=== PATIENT | female | born 1960 | race Caucasian/White ===

== ENCOUNTER 2017-02-04 22:14 | Emergency (ER) | payer MEDICAID | END 2017-02-04 22:40 | disposition left against medical advice (07) | LOC: E/R 22:14 | DX: Z53.21 Procedure and treatment not carried out due to patient leaving prior to being seen by health care provider (principal) ==

== ENCOUNTER 2017-07-25 14:37 | Emergency (ER) | payer MEDICAID ==
[2017-07-25 17:51] LABS: URINE BLOOD (Dip) POC Trace-lysed (NEGATIVE); URINE GLUCOSE (Dip) POC Negative (NEGATIVE); URINE KETONES (Dip) POC Negative (NEGATIVE); URINE LEUKOCYTE EST (Dip) POC 2+ (NEGATIVE); URINE NITRITE (Dip) POC Negative (NEGATIVE); URINE TOTAL PROTEIN POC Negative (NEGATIVE)
[2017-07-25 17:51] LABS: URINE PH (Dip) POC 6.5 (5.0-8.5)
[2017-07-25] MEDS: ACETAMINOPHEN 500 MG TAB PO (17:53)
[2017-07-25] MEDS: KETOROLAC 15 MG INJ IM ×2 (17:53→19:39)
== END 2017-07-25 19:46 | disposition home or self-care (01) ==
LOC: FTE 14:37
DX: M54.5 Low back pain (principal); I10 Essential (primary) hypertension
CPT/HCPCS: 81003; 96372; 99284-25

== ENCOUNTER 2017-09-08 20:35 | Emergency (ER) | payer MEDICAID ==
[2017-09-08] MEDS: HYDROCODONE/APAP (5/325) TAB PO (21:43)
[2017-09-08] MEDS: KETOROLAC 60 MG INJ IM (21:43)
== END 2017-09-08 23:05 | disposition home or self-care (01) ==
LOC: FTE 20:35
DX: M25.562 Pain in left knee (principal); I10 Essential (primary) hypertension
CPT/HCPCS: 73562; 96372; 99284-25

== ENCOUNTER 2018-02-03 09:38 | Emergency (ER) | payer MEDICAID ==
[2018-02-03] MEDS: predniSONE 20 MG TAB PO (10:20)
[2018-02-03] MEDS: KETOROLAC 60 MG INJ IM (10:20)
== END 2018-02-03 10:41 | disposition home or self-care (01) ==
LOC: FTE 09:38
DX: M54.5 Low back pain (principal); G89.29 Other chronic pain; I10 Essential (primary) hypertension; E03.9 Hypothyroidism, unspecified
CPT/HCPCS: 96372; 99284-25; J1885

== ENCOUNTER 2018-03-25 13:20 | Emergency (ER) | payer MEDICAID ==
[2018-03-25] MEDS: KETOROLAC 30 MG INJ IM (15:22)
[2018-03-25] MEDS: DEXAMETHASONE 10 MG/ML 1 ML INJ IM (15:22)
[2018-03-25] MEDS: METHOCARBAMOL 750 MG TAB PO (15:22)
== END 2018-03-25 16:00 | disposition home or self-care (01) ==
LOC: FTE 13:20
DX: M54.5 Low back pain (principal); I10 Essential (primary) hypertension
CPT/HCPCS: 72100; 96372; 99284-25

== ENCOUNTER 2018-04-01 11:29 | Emergency (ER) | payer MEDICAID ==
[2018-04-01] MEDS: ACETAMINOPHEN 325 MG TAB PO (11:49)
== END 2018-04-01 13:02 | disposition home or self-care (01) ==
LOC: FTE 11:29
DX: R05 Cough (principal); I10 Essential (primary) hypertension
CPT/HCPCS: 71045; 99283-25